=== PATIENT | female | born 1990 | race Caucasian/White ===

== ENCOUNTER → 2017-08-30 | Outpatient (CLI) | payer OTHER ==
[~2017-08-30] MED LIST: ALBU90OI INH; BCP; BENZ100A PO; DOXY100 PO; Loperamide2 MG PO; ONDA4 PO; PROM25 PO; Percocet 5-3251 EACH PO; RXPROM25 PO; Zofran Odt8 MG SL
== END | disposition home or self-care (01) ==
LOC: LAB EV 14:01 → LAB SHORT 14:01
DX: N12 Tubulo-interstitial nephritis, not specified as acute or chronic (principal)
CPT/HCPCS: 87077; 87086; 87186

== ENCOUNTER → 2019-05-18 | Outpatient (CLI) | payer OTHER | END | disposition home or self-care (01) | LOC: LAB EV 18:16 → LAB SHORT 18:16 | DX: M79.672 Pain in left foot (principal) | CPT/HCPCS: 84550 ==

== ENCOUNTER 2019-07-08 13:33 | Emergency (ER) | payer OTHER ==
[~2019-07-08] VITALS: Ht 162.6 cm; Wt 63.5 kg
[2019-07-08] MEDS ORDERED: ONDA4ODT MM (14:08)
== END 2019-07-08 14:19 | disposition home or self-care (01) ==
LOC: ER 13:33
DX: K52.9 Noninfective gastroenteritis and colitis, unspecified (principal); F17.200 Nicotine dependence, unspecified, uncomplicated
CPT/HCPCS: 99281

== ENCOUNTER 2021-02-24 00:38 | Emergency (ER) | payer OTHER ==
[~2021-02-24] VITALS: Ht 162.6 cm; Wt 59.0 kg
[~2021-02-24 00:38] MED LIST changes: +ONDA4ODT MM
[2021-02-24] MEDS ORDERED: IBUP600 PO (04:29)
== END 2021-02-24 04:50 | disposition home or self-care (01) ==
LOC: ER 00:38
DX: S52.532A Colles' fracture of left radius, initial encounter for closed fracture (principal); W18.30XA Fall on same level, unspecified, initial encounter; F17.200 Nicotine dependence, unspecified, uncomplicated
CPT/HCPCS: 25605; 29125; 73090; 73100; 73110; 96374; 99152; 99283-25; A9270; J1885; J2704; J7030

== ENCOUNTER 2021-03-02 11:01 | Day surgery (SDC) | payer OTHER ==
[~2021-03-02] VITALS: Ht 162.6 cm; Wt 63.5 kg
[~2021-03-02 11:01] MED LIST changes: +IBUP600 PO
--- NOTE | 2021-03-02 14:56 | NUR ---
Patient up to Ambulate independently. Gait steady.ABLE TO USE VOID WITHOUT ISSUES.Discharge instructions reviewed with patient AND SIGNIFICANT OTHER. Patient verbalizes understanding. Copy given to patient to take home. ICE PACK AND DR. KELSEY'S PAIN GUIDELINES PROVIDED TO PT. PAIN PRESCRIPTION IN DISCHARGE FOLDER WITH PT.LUNG SOUNDS REMAIN CLEAR.PT PLACED PERSONAL SLING TO LEFT ARM FOR SUPPORT.CHERYL WRAP CDI WITH CAP REFILL LESS THAN 2SECONDS.PT ABLE TO WIGGLE FINGERS.Discharged via wheelchair to private car for ride home WITH SIGNIFICANT OTHER.
== END 2021-03-02 14:55 | disposition home or self-care (01) ==
LOC: ORSCMMR 11:01
PROVIDERS: Orthopaedic Surgery
PROC: 0PSJ04Z Reposition Left Radius with Internal Fixation Device, Open Approach (ICD-10-PCS; principal; 2021-03-02 12:30)
DX: S52.502A Unspecified fracture of the lower end of left radius, initial encounter for closed fracture (principal); W17.89XA Other fall from one level to another, initial encounter; F17.210 Nicotine dependence, cigarettes, uncomplicated; U07.1 COVID-19
CPT/HCPCS: C1713; J0171; J0690; J1100; J2250; J2405; J2704; J3010; J7120